=== PATIENT | female | born 1995 | race Caucasian/White ===

== ENCOUNTER 2017-11-04 17:32 | Emergency (ER) | payer OTHER ==
--- NOTE | 2017-11-04 19:36 | ER Document Report ---
ED Medical Screen (RME) - General Chief Complaint: Vag Bleeding, +preg <12wks Stated Complaint: LOWER PELVIC PAIN/BLEEDING Time Seen by Provider: 11/04/17 19:29 Mode of Arrival: Ambulatory Information source: Patient Notes: Patient is a 21-year-old female who presents with chief complaint of vaginal bleeding. Patient reports that she is approximately 12 weeks . Patient is a . Patient reports associated cramping and nausea, denies passage of any clots. Exam: Abdomen soft, nontender. I have greeted and performed a rapid initial assessment of this patient. A comprehensive ED assessment and evaluation of the patient, analysis of test results and completion of the medical decision making process will be conducted by additional ED providers. Dictation of this chart was performed using voice recognition software; therefore, there may be some unintended grammatical errors. TRAVEL OUTSIDE OF THE [place] IN LAST 30 DAYS: No - Related Data Allergies/Adverse Reactions: brompheniramine [From Dimetapp Cold-Allergy (PE)] Allergy (Verified 11/04/17 18: 01) codeine Allergy (Verified 11/04/17 18:01) phenylephrine [From Dimetapp Cold-Allergy (PE)] Allergy (Verified 11/04/17 18:01 ) sumatriptan [From Imitrex] Allergy (Verified 11/04/17 18:01) Past Medical History - General Last Menstrual Period: 08-12-17 - Social History Chew tobacco use (# tins/day): No Frequency of alcohol use: None Drug Abuse: None Renal/ Medical History: Denies: Hx Peritoneal Dialysis Physical Exam - Vital signs Vitals: Temp Pulse Resp BP Pulse Ox 98.0 F 75 16 105/64 99 11/04/17 18:06 11/04/17 18:06 11/04/17 18:06 11/04/17 18:06 11/04/17 18:06 Course - Vital Signs Vital signs: Temp Pulse Resp BP Pulse Ox 98.0 F 75 16 105/64 99 11/04/17 18:06 11/04/17 18:06 11/04/17 18:06 11/04/17 18:06 11/04/17 18:06
--- NOTE | 2017-11-04 21:04 | RADIOLOGY REPORT (SQ) ---
EXAM DESCRIPTION: U/S OB TRANSVAG W/DOPPLER COMPLETED DATE/TIME: 11/04/2017 8:44 pm REASON FOR STUDY: vag bleed, +preg COMPARISON: None. TECHNIQUE: Transvaginal static and realtime grayscale images acquired of the pelvis. Additional carmen cted spectral and color Doppler images recorded. All images stored on PACs. bHCG: Not drawn. CLINICAL DATES: LMP 08/12/2017. 12 weeks. LIMITATIONS: None. FINDINGS: FETUS: Living intrauterine . ULTRASOUND EGA: 9 weeks ULTRASOUND OTTONIEL: 06/07/2018 CRL: 2.5 cm. FHR: No heart motion was seen. Beats per minute. SUBCHORIONIC BLEED: No SIZE OF BLEED: Not applicable. UTERUS: No masses. No anomalies. CERVICAL LENGTH: 3 cm. Closed. RIGHT ADNEXA: Ovary not seen. No adnexal free fluid. No adnexal masses. LEFT ADNEXA: Normal ovary with normal vascular flow. 2.4 cm. No adnexal free fluid. No adnexal masses. FREE FLUID: None. OTHER: No other significant finding. IMPRESSION: Intrauterine gestation of 9 weeks. No heart motion was seen. Concerning for feta l demise. . TECHNICAL DOCUMENTATION: JOB ID: [id number] [employer]- All Rights Reserved Reading location - IP/workstation name: [email or web address]
[2017-11-04 21:06] LABS: APPEARANCE,URINE CLOUDY; BILIRUBIN,URINE NEGATIVE (NEGATIVE); COLOR,URINE YELLOW; GLUCOSE, URINE NEGATIVE (NEGATIVE); KETONES,URINE NEGATIVE (NEGATIVE); LEUKOCYTE ESTERASE,URINE SMALL (NEGATIVE); NITRITE,URINE NEGATIVE (NEGATIVE); PROTEIN,URINE NEGATIVE (NEGATIVE); URINE SPECIFIC GRAVITY 1.019; UROBILINOGEN,URINE NEGATIVE mg/dL (<2.0)
[2017-11-04 21:22] LABS: ABSOLUTE EOSINOPHILS # (AUTO) 0.2 10^3/uL (0.0-0.6); ABSOLUTE MONOCYTES (AUTO) 0.8 10^3/uL (0.1-1.4); ABSOLUTE NEUT (AUTO) 5.5 10^3/uL (1.7-8.2); BASOPHILS % (AUTO) 0.5 % (0-2); EOSINOPHILS % (AUTO) 2.3 % (0-6); HEMATOCRIT 40.2 % (36.0-47.0); HEMOGLOBIN 13.8 g/dL (12.0-15.5); LYMPHOCYTES % (AUTO) 31.6 % (13-45); MEAN CORPUSCULAR HEMOGLOBIN 30.6 pg (27.0-33.4); MEAN CORPUSCULAR HGB CONC 34.3 g/dL (32.0-36.0); MEAN CORPUSCULAR VOLUME 89 fl (80-97); MONOCYTES % (AUTO) 8.3 % (3-13); PLATELET COUNT 267 10^3/uL (150-450); RED BLOOD COUNT 4.51 10^6/uL (3.72-5.28); SEGMENTED NEUTROPHILS % (AUTO) 57.3 % (42-78); TOTAL CELLS COUNTED % (AUTO) 100 %; WHITE BLOOD COUNT 9.5 10^3/uL (4.0-10.5)
--- NOTE | 2017-11-04 22:27 | ER Document Report ---
ED General - General Chief Complaint: Vag Bleeding, +preg <12wks Stated Complaint: LOWER PELVIC PAIN/BLEEDING Time Seen by Provider: 11/04/17 19:29 Mode of Arrival: Ambulatory Notes: Patient is a 21-year-old female who presents with chief complaint of vaginal bleeding. Patient reports that she is approximately 12 weeks . Patient is a . Patient reports associated cramping and nausea, denies passage of any clots. TRAVEL OUTSIDE OF THE [place] IN LAST 30 DAYS: No - Related Data Allergies/Adverse Reactions: brompheniramine [From Dimetapp Cold-Allergy (PE)] Allergy (Verified 11/04/17 21: 51) codeine Allergy (Verified 11/04/17 21:51) phenylephrine [From Dimetapp Cold-Allergy (PE)] Allergy (Verified 11/04/17 21:51 ) sumatriptan [From Imitrex] Allergy (Verified 11/04/17 21:51) Past Medical History - General Information source: Patient Last Menstrual Period: 08-12-17 - Social History Smoking Status: Never Smoker Chew tobacco use (# tins/day): No Frequency of alcohol use: None Drug Abuse: None Family History: Reviewed & Not Pertinent Patient has suicidal ideation: No Patient has homicidal ideation: No - Medical History Medical History: Negative Renal/ Medical History: Denies: Hx Peritoneal Dialysis Surgical Hx: Negative Review of Systems - Review of Systems Constitutional: No symptoms reported EENT: No symptoms reported Cardiovascular: No symptoms reported Respiratory: No symptoms reported Gastrointestinal: No symptoms reported Genitourinary: See HPI Female Genitourinary: No symptoms reported Musculoskeletal: No symptoms reported Skin: No symptoms reported Hematologic/Lymphatic: No symptoms reported Neurological/Psychological: No symptoms reported Physical Exam - Vital signs Vitals: Temp Pulse Resp BP Pulse Ox 98.0 F 75 16 105/64 99 11/04/17 18:06 11/04/17 18:06 11/04/17 18:06 11/04/17 18:06 11/04/17 18:06 - Notes Notes: PHYSICAL EXAMINATION: GENERAL: Well-appearing, well-nourished and in no acute distress. HEAD: Atraumatic, normocephalic. EYES: Pupils equal round and reactive to light, extraocular movements intact, conjunctiva are normal. ENT: Nares patent, oropharynx clear without exudates. Moist mucous membranes. NECK: Normal range of motion, supple without lymphadenopathy LUNGS: Breath sounds clear to auscultation bilaterally and equal. No wheezes rales or rhonchi. HEART: Regular rate and rhythm without murmurs ABDOMEN: Soft, nontender, nondistended abdomen. No guarding, no rebound. No masses appreciated. Female : deferred Musculoskeletal: Normal range of motion, no pitting or edema. No cyanosis. NEUROLOGICAL: Cranial nerves grossly intact. Normal speech, normal gait. Normal sensory, motor exams PSYCH: Normal mood, normal affect. SKIN: Warm, Dry, normal turgor, no rashes or lesions noted. Course - Re-evaluation Re-evalutation: Transvaginal ultrasound reveals a 9 week gestational age fetus with no identifiable heart tones. Quantitative hCG is 3409. Laboratory results otherwise unremarkable 11/04/17 22:28 Called and spoke with Dr. Capone regarding today's test results. She recommends no treatment at this time, patient to follow-up with her office Tuesday morning to discuss options. All questions were answered and patient verbalizes understanding of plan of care. - Vital Signs Vital signs: Temp Pulse Resp BP Pulse Ox 98.9 F 75 16 115/71 99 11/05/17 01:15 11/05/17 01:15 11/05/17 01:15 11/05/17 01:15 11/05/17 01:15 - Laboratory Result Diagrams: 11/04/17 20:40 Laboratory results interpreted by me: 11/04/17 11/04/17 19:50 20:40 Beta HCG, Quant 3409.30 H Urine Blood MODERATE H Ur Leukocyte Esterase SMALL H Discharge - Discharge Clinical Impression: demise, Vaginal bleeding Condition: Stable Disposition: HOME, SELF-CARE Additional Instructions: Miscarriage Impending You have been evaluated for a possible miscarriage. At this time, it appears that the fetus has stopped growing and does not have an identifiable heartbeat. A miscarriage occurs when the fetus is abnormal. There is no medicine or treatment to prevent it. If bleeding is not severe, and if your pain can be controlled with medicine, you could complete the miscarriage at home. If that's not practical, or if the miscarriage doesn't progress spontaneously, we will arrange for a D&C procedure. You should rest in bed. Do not douche or have sex for at least a week, or until OK'd by the doctor. If you believe you've passed the fetus, collect it in a zip-lock plastic bag. Be sure to follow up with your doctor. Call the doctor or return for re- examination if there is an increase in bleeding or cramping, extreme weakness, fainting, fever, or passage of tissue. Please follow[facility] with [facility] on Tuesday. Call them first thing Tuesday morning tell them you are seen in the emergency department and that Dr. Capone want to seen in the office on Tuesday. Referrals: [facility] [Provider Group] - Follow up as needed
[2017-11-05 01:19] VITALS: BP 115/71
== END 2017-11-04 23:25 | disposition home or self-care (01) ==
LOC: ER 17:32
DX: O02.1 Missed abortion (principal); O26.891 Other specified pregnancy related conditions, first trimester; R10.9 Unspecified abdominal pain; R11.0 Nausea; Z3A.12 12 weeks gestation of pregnancy
CPT/HCPCS: 36415; 76817; 81001; 84702; 85025; 86900; 86901; 93976; 99284

== ENCOUNTER 2017-11-06 19:03 | Observation (INO) | payer OTHER ==
--- NOTE | 2017-11-06 19:27 | ER Document Report ---
ED Medical Screen (RME) - General Chief Complaint: Vag Bleeding, +preg <12wks Stated Complaint: ABDOMINAL PAIN Mode of Arrival: Ambulatory Information source: Patient, H Records Notes: 21-year-old female presents for the second time in 2 days with complaint of increased abdominal pain, increased vaginal bleeding with . Patient was seen on November 04 where an ultrasound was performed that showed an IUP dating approximately 9 weeks but no activity. RhoGam workup was obtained and patient is a positive. I have greeted and performed a rapid initial assessment of this patient. A comprehensive ED assessment and evaluation of the patient, analysis of test results and completion of medical decision making process we will be contacted by additional ED providers. PHYSICAL EXAMINATION: GENERAL: Well-appearing, well-nourished and in no acute distress. HEAD: Atraumatic, normocephalic. EYES: Pupils equal round extraocular movements intact, conjunctiva are normal. ENT: Nares patent NECK: Normal range of motion LUNGS: No respiratory distress Musculoskeletal: Normal range of motion NEUROLOGICAL: Normal speech, normal gait. PSYCH: Normal mood, normal affect. SKIN: Warm, Dry, normal turgor, no rashes or lesions noted. TRAVEL OUTSIDE OF THE [place] IN LAST 30 DAYS: No - HPI Quality of pain: Cramping Severity: Moderate Associated Symptoms: Dizzy/lightheaded, Nausea Similar symptoms previously: Yes Recently seen / treated by doctor: Yes - November 04, 2017 - Related Data Smoking: Non-smoker Frequency of alcohol use: None Drug Abuse: None Allergies/Adverse Reactions: brompheniramine [From Dimetapp Cold-Allergy (PE)] Allergy (Verified 11/06/17 19: 21) codeine Allergy (Verified 11/06/17 19:21) phenylephrine [From Dimetapp Cold-Allergy (PE)] Allergy (Verified 11/06/17 19:21 ) sumatriptan [From Imitrex] Allergy (Verified 11/06/17 19:21) Past Medical History - Social History Frequency of alcohol use: None Drug Abuse: None Renal/ Medical History: Denies: Hx Peritoneal Dialysis Physical Exam - Vital signs Vitals: Temp Pulse Resp BP Pulse Ox 97.5 F 75 18 110/65 99 11/06/17 19:09 11/06/17 19:11/06/17 19:11/06/17 19:18 19:09 Course - Vital Signs Vital signs: Temp Pulse Resp BP Pulse Ox 97.5 F 75 18 110/65 99 11/06/17 19:09 11/06/17 19:11/06/17 19:09 11/06/17 19:11/06/17 19:09 Doctor's Discharge - Discharge Referrals: WM CARBALLO MD [Primary Care Provider] - Follow up as needed
[2017-11-06] MEDS ORDERED: KETOROLAC TROMETHAMINE 60 MG/2 ML SDV IM ONE (22:19)
--- NOTE | 2017-11-06 22:19 | ER Document Report ---
ED GI/ - General Mode of Arrival: Ambulatory Information source: Patient TRAVEL OUTSIDE OF THE [place] IN LAST 30 DAYS: No <FREEMAN RICHARD - Last Filed: 11/07/17 00:50> <SHARI FORREST - Last Filed: 11/07/17 03:49> - General Chief Complaint: Vag Bleeding, +preg <12wks Stated Complaint: ABDOMINAL PAIN Time Seen by Provider: 11/06/17 19:30 Notes: 21-year-old female who presents to the emergency department today with complaints of vaginal bleeding. Patient was seen in this facility on November 04 and was told she was having a miscarriage. Patient states that today her abdominal cramping has increased, she is having heavier bleeding, and is now passing tissue. Patient also complains of subjective fevers and low back pain. (FREEMAN RICHARD) - Related Data Allergies/Adverse Reactions: brompheniramine [From Dimetapp Cold-Allergy (PE)] Allergy (Verified 11/06/17 19: 21) codeine Allergy (Verified 11/06/17 19:21) phenylephrine [From Dimetapp Cold-Allergy (PE)] Allergy (Verified 11/06/17 19:21 ) sumatriptan [From Imitrex] Allergy (Verified 11/06/17 19:21) Past Medical History - General Information source: Patient, [facility] - Social History Smoking Status: Former Smoker Frequency of alcohol use: None Drug Abuse: None Lives with: Family Family History: Reviewed & Not Pertinent Patient has suicidal ideation: No Patient has homicidal ideation: No - Medical History Medical History: Negative Surgical Hx: Negative <FREEMAN RICHARD - Last Filed: 11/07/17 00:50> Review of Systems - Review of Systems Constitutional: See HPI, Fever - subjective EENT: No symptoms reported Cardiovascular: No symptoms reported Respiratory: No symptoms reported Gastrointestinal: See HPI, Abdominal pain - abdominal cramping Genitourinary: No symptoms reported Female Genitourinary: See HPI, - was told on 11/04 she was having a miscarriage, Vaginal bleeding Musculoskeletal: See HPI, Back pain - lower Skin: No symptoms reported Hematologic/Lymphatic: No symptoms reported Neurological/Psychological: No symptoms reported -: Yes All other systems reviewed and negative <FREEMAN RICHARD - Last Filed: 11/07/17 00:50> Physical Exam <FREEMAN RICHARD - Last Filed: 11/07/17 00:50> - Genitourinary External exam: Normal Speculum exam: Cervix open, Other - Large amount of clot, some organized clot, and blood was removed from the vaginal vault to provide visualization of the cervix. Cervix is open, there is some dark blood oozing from the cervix, no products of conception were noted.. No: Products of conception <SHARI FORREST - Last Filed: 11/07/17 03:49> - Vital signs Vitals: Temp Pulse Resp BP Pulse Ox 97.5 F 75 18 110/65 99 11/06/17 19:09 11/06/17 19:11/06/17 19:11/06/17 19:11/06/17 19:09 - Notes Notes: Physical Exam: General: Alert, tearful. HEENT: Normocephalic. Atraumatic. PERRL. Extraocular movements intact. Oropharynx clear. Neck: Supple. Non-tender. Respiratory: No respiratory distress. Clear and equal breath sounds bilaterally. Cardiovascular: Regular rate and rhythm. Abdominal: Normal Inspection. Non-tender. No distension. Normal Bowel Sounds. Back: Non-tender. No deformity or step off. Extremities: Moves all four extremities. Upper extremities: Normal inspection. Normal ROM. Lower extremities: Normal inspection. No edema. Normal ROM. Neurological: Normal cognition. AAOx4. Normal speech. Psychological: Normal affect. Tearful, sobbing. Skin: Warm. Dry. Normal color. (FREEMAN RICHARD) Course - Laboratory Result Diagrams: 11/06/17 19:50 11/06/17 19:50 <FREEMAN RICHARD - Last Filed: 11/07/17 00:50> - Laboratory Result Diagrams: 11/06/17 19:50 11/06/17 19:50 - Diagnostic Test Radiology reviewed: Reports reviewed - Ultrasound done when the patient first arrived is unchanged from 2 days ago showing a 9 week IUP without a heartbeat. - Consults Dr. Capone Time consulted: 01:00 Consulted provider: follow-up in office - She will follow-up with the patient in the office this morning as originally planned. <SHARI FORREST - Last Filed: 11/07/17 03:49> - Re-evaluation Re-evalutation: 11/07/17 01:48 Patient reports her cramping has gone now after the 2 L IV fluids. She has noticed some sensation of bleeding. In exam of the introitus shows no bleeding or clots at this time. 11/07/17 02:03 When I reviewed the discharge instructions and plans with the patient and her family, the mother got quite irate and upset claiming that her daughter had been in here twice and that we were mistreating her by sending her home. I suppose she wanted her admitted on 11/04/2017 . The mother and the spouse were claiming that the patient had lost excessive amounts of blood. I tried to explain that the amount of blood loss she has had so far was not very much, it just appeared so to someone that was not used to seeing miscarriages. 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 At this point I gave up trying to talk with them, and called Dr. Capone to explain my dilemma. She agreed to have the patient sent to the second floor and she would manage her from there. (SHARI FORREST) - Vital Signs Vital signs: Temp Pulse Resp BP Pulse Ox 98.6 F 62 15 106/59 L 99 11/07/17 01:41 11/07/17 01:41 11/07/17 01:41 11/07/17 01:41 11/07/17 01:41 - Laboratory Laboratory results interpreted by me: 11/06/17 11/06/17 19:50 19:50 Glucose 69 L Beta HCG, Quant 2137.60 H Discharge <FREEMAN RICHARD - Last Filed: 11/07/17 00:50> - Discharge Admitting Provider: [facility] Admitted: Labor and Delivery <SHARI FORREST - Last Filed: 11/07/17 03:49> - Discharge Clinical Impression: Incomplete miscarriage Condition: Stable Disposition: ADMITTED OBSERVATION Scribe Attestation: 11/06/17 23:35 I personally performed the services described in the documentation, reviewed and edited the documentation which was dictated to the scribe in my presence, and it accurately records my words and actions. (SHARI FORREST) Scribe Documentation - Scribe Written by Jael:: Jael Alcantar, 11/06/2017 2231 acting as scribe for :: Judi <FREEMAN RICHARD - Last Filed: 11/07/17 00:50>
[2017-11-06 22:55] LABS: ALANINE AMINOTRANSFERASE 21 U/L (9-52); ALKALINE PHOSPHATASE 51 U/L (38-126); ANION GAP 10 (5-19); ASPARTATE AMINO TRANSFERASE 17 U/L (14-36); BILIRUBIN,DIRECT 0.2 mg/dL (0.0-0.4); BILIRUBIN,TOTAL 0.5 mg/dL (0.2-1.3); BLOOD UREA NITROGEN 10 mg/dL (7-20); CALCIUM 9.6 mg/dL (8.4-10.2); CARBON DIOXIDE 22 mmol/L (22-30); CHLORIDE 106 mmol/L (98-107); GLUCOSE 69 mg/dL (75-110); TOTAL PROTEIN 7.1 g/dL (6.3-8.2)
[2017-11-06 22:58] LABS: ABSOLUTE EOSINOPHILS # (AUTO) 0.2 10^3/uL (0.0-0.6); ABSOLUTE LYMPHOCYTES (AUTO) 2.4 10^3/uL (0.5-4.7); ABSOLUTE MONOCYTES (AUTO) 0.8 10^3/uL (0.1-1.4); ABSOLUTE NEUT (AUTO) 4.5 10^3/uL (1.7-8.2); BASOPHILS % (AUTO) 0.5 % (0-2); EOSINOPHILS % (AUTO) 3.1 % (0-6); HEMATOCRIT 38.1 % (36.0-47.0); HEMOGLOBIN 13.1 g/dL (12.0-15.5); LYMPHOCYTES % (AUTO) 30.4 % (13-45); MEAN CORPUSCULAR HEMOGLOBIN 30.8 pg (27.0-33.4); MEAN CORPUSCULAR HGB CONC 34.3 g/dL (32.0-36.0); MEAN CORPUSCULAR VOLUME 90 fl (80-97); MONOCYTES % (AUTO) 10.2 % (3-13); PLATELET COUNT 255 10^3/uL (150-450); RED BLOOD COUNT 4.24 10^6/uL (3.72-5.28); RED CELL DISTRIBUTION WIDTH 13.2 % (11.5-14.0); SEGMENTED NEUTROPHILS % (AUTO) 55.8 % (42-78); TOTAL CELLS COUNTED % (AUTO) 100 %; WHITE BLOOD COUNT 8.1 10^3/uL (4.0-10.5)
--- NOTE | 2017-11-06 23:08 | RADIOLOGY REPORT (SQ) ---
EXAM DESCRIPTION: US TRANSVAGINAL COMPLETED DATE/TME: 11/06/2017 19:30 CLINICAL HISTORY: 21 years, Female, vaginal bleeding. Positive urine test. LMP 08/12/2017 COMPARISON: 11/04/2017 TECHNIQUE: Complete first trimester obstetrical ultrasound with transvaginal imaging. FINDINGS: The uterus measures 10.3 x 6.1 x 6.3 cm. Within the endometrial canal there is a gestational sac. [place]-rump length of 2.44 cm compatible with an estimated gestational age of 9 weeks, 1 day. No cardiac activity identified. No myometrial abnormalities. Cervical length of 3.0 cm. No free pelvic fluid. A large adnexal masses. The right ovary is not identified. The left ovary measures 2.2 x 1.3 x 1.2 cm. Limited color and spectral Doppler images demonstrate flow within the left ovary. IMPRESSION: 1. Single intrauterine gestation with estimated gestational age of 9 weeks, 1 days. No cardiac activity is again identified. This is similar to the comparison study. These findings are compatible with demise. Close continued follow-up recommended. 2011 [employer]- All Rights Reserved
[2017-11-06] MEDS ORDERED: ONDANSETRON HCL INJ/PF 4 MG/2 ML SDV IV ONE (23:11)
[2017-11-06] MEDS ORDERED: HYDROMORPHONE HCL INJ/PF 2 MG/ML AMPULE IV ONE (23:11)
[2017-11-06] MEDS ORDERED: NORMAL SALINE 1000 ML 1,000 ML IV ONE (23:11)
[2017-11-07] MEDS ORDERED: DEXTROSE 5%-LACTATED RINGERS 1,000 ML IV ONE ×2 (00:52→04:04)
[2017-11-07] MEDS ORDERED: ONDANSETRON ODT 4 MG TAB (6 TAB/ER DISP) PO PRN (01:55)
[2017-11-07] MEDS ORDERED: HYDROCODONE/ACETAMINOPHEN 5-325 MG (6 TAB/ER DISP) PO PRN (01:55)
[2017-11-07] MEDS ORDERED: RINGERS SOLUTION,LACTATED 1,000 ML IV PRN (04:14)
--- NOTE | 2017-11-07 06:15 | PDOC H&P ---
History of Present Illness Admission Date/PCP: 11/07/17 02:10 WM CARBALLO MD Patient complains of: increased vaginal bleeding, known missed . History of Present Illness: JORDAN WASHINGTON is a 21 year old female @ 12 wks with a known missed ab that was seen in ER 2 days ago and was advised to follow up at office tomorrow AM. Patient returned to the ER last evening with c/o increased cramping and vaginal bleeding. Sono shows gestational sac with pole measuring same as previous. Patient offerred outpatient management with a follow up appt at office in a few hours but patient and her mother prefer to be managed in hospital rather than as outpatient. Past Medical History LMP: 08/12/17 Past Surgical History Past Surgical History: Reports: Adenoidectomy, Appendectomy, Orthopedic Surgery , Tonsillectomy Social History Lives with: Family Smoking Status: Former Smoker Family History Family History: Reviewed & Not Pertinent Family History: maternal aunt with Lupus and has had 2 strokes Parental Family History Reviewed: Yes Children Family History Reviewed: NA Sibling(s) Family History Reviewed.: Yes Medication/Allergy Home Medications: Epinephrine [Epipen] 0.3 mg IJ PRN PRN 11/04/17 Ergocalciferol (Vitamin D2) [Vitamin D] 400 unit PO DAILY 11/04/17 Pnv No.95/Ferrous Fum/Folic AC [ Vitamin Tablet] 1 each PO DAILY Allergies/Adverse Reactions: brompheniramine [From Dimetapp Cold-Allergy (PE)] Allergy (Verified 11/06/17 19: 21) codeine Allergy (Verified 11/06/17 19:21) phenylephrine [From Dimetapp Cold-Allergy (PE)] Allergy (Verified 11/06/17 19:21 ) sumatriptan [From Imitrex] Allergy (Verified 11/06/17 19:21) Review of Systems Constitutional: PRESENT: as per HPI Physical Exam - Physical Exam Vital Signs: Temp Pulse Resp BP Pulse Ox 98.0 F 63 16 103/59 L 100 11/07/17 05:09 11/07/17 05:09 11/07/17 05:09 11/07/17 05:09 11/07/17 05:09 General appearance: PRESENT: cooperative, mild distress, well-developed Head exam: PRESENT: atraumatic GI/Abdominal exam: PRESENT: soft, tenderness - nondistended Neurological exam: PRESENT: alert, altered, awake, oriented to person, oriented to place, oriented to time, CN II-XII grossly intact Result Impressions: Obstetrics Ultrasound 11/06/17 19:30 IMPRESSION: 1. Single intrauterine gestation with estimated gestational age of 9 weeks, 1 days. No cardiac activity is again identified. This is similar to the comparison study. These findings are compatible with demise. Close continued follow-up recommended. 2010 [employer]- All Rights Reserved Status: Image reviewed by me Assessment & Plan - Diagnosis (1) Incomplete miscarriage Is this a current diagnosis for this admission?: Yes (2) Vaginal bleeding Is this a current diagnosis for this admission?: Yes - Time Time Spent: 30 to 50 Minutes Critical Time spent with patient: Less than 15 minutes Medications reviewed and adjusted accordingly: Yes Anticipated discharge: Home Within: within 24 hours - Plan Summary Plan Summary: will observe and prepare paient for suction d&c. Advised patient that she will likely discharge after d&c. Will have her continue to monitor for continued passage of tissue. Plan to speak to oncoming Club Waiter/Waitress regarding D&C.
[2017-11-07] MEDS ORDERED: FENTANYL CITRATE INJ/PF 100 MCG/2 ML AMPUL ONE (07:10)
[2017-11-07] MEDS ORDERED: MIDAZOLAM 2 MG/2 ML INJ ONE (07:11)
[2017-11-07] MEDS ORDERED: PROPOFOL INJ 200 MG/20 ML VIAL IV ONE (07:11)
[2017-11-07] MEDS ORDERED: ONDANSETRON HCL INJ/PF 4 MG/2 ML SDV ONE (07:11)
[2017-11-07] MEDS ORDERED: FENTANYL CITRATE INJ/PF 100 MCG/2 ML AMPUL IV PRN ×3 (07:51)
[2017-11-07] MEDS ORDERED: MEPERIDINE HCL/PF INJ 25 MG/1 ML DISP.SYRIN IV PRN (07:51)
[2017-11-07] MEDS ORDERED: MORPHINE SULFATE 10 MG/ML INJ IV PRN (07:51)
[2017-11-07] MEDS ORDERED: PROMETHAZINE HCL INJ 25 MG/1 ML VIAL IV PRN (07:51)
[2017-11-07] MEDS ORDERED: DIPHENHYDRAMINE HCL 50 MG/ML VIAL IV PRN (07:51)
[2017-11-07] MEDS ORDERED: OXYCODONE-ACETAMINOPHEN 5-325 MG TABLET PO PRN (08:33)
[2017-11-07] MEDS ORDERED: IBUPROFEN 800 MG TABLET PO PRN (08:34)
[2017-11-07] MEDS ORDERED: OXYCODONE-ACETAMINOPHEN 5-325 MG TABLET ONE (08:56)
[2017-11-07] MEDS ORDERED: IBUPROFEN 800 MG TABLET ONE (09:05)
[2017-11-07 10:05] VITALS: BP 104/69
--- NOTE | 2017-11-07 10:17 | OPERATIVE REPORT E ---
Operative Report NAME: JORDAN WASHINGTON : 1995 AGE: 21Y DATE OF SURGERY: 11/07/2017 ROOM: ED01 PREOPERATIVE DIAGNOSIS: INCOMPLETE AB POSTOPERATIVE DIAGNOSIS: INCOMPLETE AB OPERATION: Suction dilation and curettage. SURGEON: ELVA MATHUR M.D. ANESTHESIA: Dr. Eric Amador with general. FINDINGS: Uterus sounded to approximately 12 cm. Moderate amounts of tissue obtained. Os was closing at the end of the procedure. COMPLICATIONS: None. ESTIMATED BLOOD LOSS: Approximately 100 mL. PROCEDURE: The patient was taken to the operating room, and prepared and draped in normal sterile fashion in a dorsal lithotomy position. Under sterile conditions an in-and-out catheter was performed and approximately 50 mL of clear urine. A sterile speculum was then placed into the vagina. The cervix was prepped with Betadine and grasped on the anterior lip with a single-tooth tenaculum. The uterus was then sounded to approximately 12 cm and it was noted that the cervix was dilated significantly already, however, no tissue was noted at the os. A suction curettage was performed with very little tissue obtained, so a sharp curettage was then performed and there was definitely evidence of continued tissue with retention so the suction curettage was passed once more and continued passage until the tissue was obtained. The sharp curettage was performed a couple more times and it was felt that the tissue was adequately removed at this point with good grit felt in 360 degrees through the probe. The instruments were removed and the cervix was watched and it was noted that the cervix was starting to close at the end of the procedure and the bleeding was very minimal. Patient tolerated the procedure well. Sponge, lap, and needle counts were correct x2 and the patient was taken to recovery in stable condition. DICTATING PHYSICIAN: ELVA MATHUR M.D. [id number] PHY#: [id number] ID: [id number] JOB#: [id number] ACCT: [id number] cc:ELVA MATHUR M.D. >
== END 2017-11-07 10:00 | disposition home or self-care (01) ==
LOC: ER 19:03 → EH 11-07 02:10
PROVIDERS: ADMIT Obstetrics & Gynecology; ATTEND Obstetrics & Gynecology
PROC: 10D17Z9 Manual Extraction of Products of Conception, Retained, Via Natural or Artificial Opening (ICD-10-PCS; principal; 2017-11-07 07:30)
DX: O02.1 Missed abortion (principal); Z87.891 Personal history of nicotine dependence; Z90.49 Acquired absence of other specified parts of digestive tract
CPT/HCPCS: 99285; 96361; 96374; 96375; 36415; 84702; 85025; 80053; 88305 ×2; 76817; 59820; J2250; J1885; J3010; J1170; J2405 ×2; J7030; J7120; J2704